=== PATIENT | female | born 1970 | race Caucasian/White ===

== ENCOUNTER → 2019-08-21 06:55 | Day surgery (SDC) | payer BC ==
[~2019-08-21 06:55] MED LIST: Buffered Lidocaine 1% SYRIN* 1 ML/SYRINGE INTRADERM ONE; Bupivacaine 0.5%* 50 ML MDV VIAL ONE; HYDROcodone/ACETAMIN 5-325 MG* 1 TAB PO PRN; Lactated Ringers 1000 ML Bag* 1,000 ML IV SCH; Lidocaine 1% INJ* 10 MG/ML 30 ML SDV ONE; Lidocaine 2.5%/Prilocain 2.5%* 5 GM TUBE ONE; Midazolam* 1 MG/ML 5 ML VIAL (5 MG) ONE; ceFAZolin 2 GM in NS PREMIX(*) 2 GM/100 ML BAG IVPB ONE; fentaNYL* 50 MCG/ML 2 ML VIAL (100 MCG VIAL) ONE
[2019-08-21 15:32] VITALS: BP 133/85
--- NOTE | 2019-08-21 21:23 | OP ---
CC: [facility] * DATE OF OPERATION: 08/21/19 - SDS DATE OF : 66 SURGEON: Nisha Hogue MD CEILING INSTALLER: MD Sadie PRE-OP DIAGNOSIS: Right breast ductal carcinoma in situ. POST-OP DIAGNOSIS: Right breast ductal carcinoma in situ. OPERATIVE PROCEDURE: Needle localization and excision of right breast ductal carcinoma in situ. INDICATIONS: Ms. Tai is a 49-year-old woman recently diagnosed with ductal carcinoma in situ, which prompted the plan for further surgical intervention. On the morning of surgery, she underwent needle localization without difficulty. DESCRIPTION OF PROCEDURE: She was then brought to the operating room, placed on the OR table in the supine position and given IV sedation. The right breast was prepped and draped in the usual sterile fashion taking care not to dislodge the localizing wire. After infiltrating with local anesthetic, a curvilinear elliptical incision encompassing the wire was made. Subcutaneous tissue was divided with electrocautery to excise the mass of tissue from around the wire. This was then marked in the usual fashion and handed off as a specimen. The wound was inspected for hemostasis, which was achieved with electrocautery. Once this appeared adequate, the wound was irrigated copiously with saline. Clips were placed in the cavity to heriberto its confines and then additional local was instilled into the cavity. Closure was then accomplished with 3-0 Vicryl in the subcutaneous layer and the skin was closed with 4-0 Prolene in a subcuticular fashion. Steri- Strips and a dry sterile dressing were applied. All sponge and instrument counts were correct. The patient tolerated the procedure well and was transferred to Recovery in a stable condition. [id number]/[facility] #: [id number] [facility]
== END | disposition home or self-care (01) ==
LOC: SDS 06:55
PROVIDERS: ATTEND Surgery
DX: D05.91 Unspecified type of carcinoma in situ of right breast (principal)
CPT/HCPCS: 88307; A9270-GY; J0690; J2250; J3010; J3490